=== PATIENT | male | born 1995 | race Two or more races ===

== ENCOUNTER 2018-01-15 07:01 | Emergency (ER) | payer SELFPAY ==
[~2018-01-15] VITALS: Ht 165.1 cm; Wt 74.8 kg
[2018-01-15] MEDS ORDERED: NKM (07:07)
[2018-01-15 07:20] VITALS: BP 116/73
[2018-01-15 08:25] VITALS: BP 116/73
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
== END 2018-01-15 08:27 ==
LOC: EMR 07:20
DX: L53.9 Erythematous condition, unspecified (principal); Z53.20 Procedure and treatment not carried out because of patient's decision for unspecified reasons
CPT/HCPCS: 99283